=== PATIENT | female | born 1990 | race African-American/Black ===

== ENCOUNTER 2019-10-28 08:05 | Emergency (ER) | payer OTHER ==
[~2019-10-28] VITALS: Ht 160 cm; Wt 79.4 kg
[~2019-10-28 08:05] MED LIST: FOLIC ACID 40400 MC1 PO; HYDROCODON-ACE1 EAC7 PO; IBUPROFEN 600600 M1 PO; PRENATAL PO
[2019-10-28 08:44] LABS: URINE BILIRUBIN NEGATIVE (Negative); URINE BLOOD NEGATIVE (Negative); URINE CLARITY CLEAR; URINE COLOR YELLOW; URINE GLUCOSE-RANDOM NEGATIVE (Negative); URINE KETONES 1+ (Negative); URINE LEUKOCYTES-REFLEX NEGATIVE (Negative); URINE NITRITE-REFLEX NEGATIVE (Negative); URINE PROTEIN TRACE (Negative); URINE UROBILINOGEN 0.2 E.U./dl (0.2-1.0)
[2019-10-28 08:54] LABS: CALCIUM 8.7 mg/dL (8.5-10.1); CREATININE 0.9 mg/dL (0.6-1.3); POTASSIUM 3.8 mmol/L (3.5-5.1)
[2019-10-28 09:15] LABS: INFLUENZA A ANTIGEN Negative (Negative)
[2019-10-28] MEDS ORDERED: TAMIFLU75 MG PO (09:19)
[2019-10-28 09:41] VITALS: BP 124/85
== END 2019-10-28 09:43 | disposition home or self-care (01) ==
LOC: M.ERS 08:05
PROVIDERS: Emergency Medicine Emergency Medical Services
DX: J10.1 Influenza due to other identified influenza virus with other respiratory manifestations (principal)